=== PATIENT | female | born 1980 | race Caucasian/White ===

== ENCOUNTER 2023-10-31 10:57 | Outpatient (AMB) | payer OTHER, SELFPAY ==
--- NOTE | 2023-10-31 11:00 | A.OFFVIS_ITS ---
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 She reports this started intermittently 7 months a go. Arms are worse than feet. [employer] Required: No Allergies No Known Allergies Allergy (Verified 10/31/23 11:01) Medication List - Last Reconciled 10/31/23 by Ila Villa MD cholecalciferol (vitamin D3) 25 mcg PO DAILY duloxetine 20 mg PO BID HPI Comments Details: 43y/o female comes for evaluation of tingling , numbness in bilateral hands and feet. It started about 6 mths ago and has worsened in her hands since then she wakes up with tingling tightness in her hands and resolves in 5-10 minutes. Sometimes she wakes up at night with numbness tingling.she has mild weakness in her hands. No neck pain she also has some tingling numbness in her toes while working out at the gym.s he usually takes her shoes off and stretches which helps.she also has tingling cramps of her legs night that wake her up. No back pain or weakness. 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 [facility] Medical History (Updated 10/31/23 @ 11:32 by Ila Villa MD) Numbness and tingling in both hands Bilateral leg paresthesia Anxiety Bradycardia Arthritis of knee Surgical History H/O: hysterectomy Family History Mother Hypertension Hyperlipidemia Heart disease Father Hypertension Muscular dystrophy Sister Hypertension Hyperlipidemia Breast cancer Brother Hypertension Hyperlipidemia Maternal Grandmother Lung cancer Maternal Grandfather Diabetes Social History Alcohol intake: current Patient Tobacco Use Status: Never used Tobacco Physical Exam Vital Signs: Last Vital Signs Pulse 76 10/31/23 11:01 Resp 16 10/31/23 11:01 BP 116/70 10/31/23 11:01 BMI result Body Mass Index 32.4 Const General: cooperative, healthy appearing and comfortable Nutritional Appearance: overweight Orientation/consciousness: patient oriented x3 Eyes Pupils: Equal, round and reactive pupils present Neuro General: patient oriented x3, gait normal, tone normal, moves all extremities and no focal motor deficits Cranial nerves: Yes Facial sensation intact/muscles of mastication intact, Yes Equal, round and reactive pupils present, Yes Bilaterally intact EOM present, Yes Nystagmus not present, Yes Normal facial strength present, Yes Midline tongue present, Yes Symmetric palate elevation present and Yes Ability to bilaterally elevate shoulders present Cognition (Neuro): normal cognition Gait exam (Neuro): Normal gait present Motor exam (neuro): 5/5 motor strength present throughout, no tremor noted and Normal motor muscle tone present throughout Deep tendon reflexes (DTR's): Right triceps reflex intensity grade: 2+, Left triceps reflex intensity grade: 2+, Rt Biceps (C5, C6): 2+, Left biceps reflex intensity grade: 2+, Right brachioradialis reflex intensity grade: 2+, Left brachioradialis reflex intensity grade: 2+, Right patellar reflex intensity grade: 2+ and Left patellar reflex intensity grade: 2+ Coordination: [id number] test normal Assessment & Plan Assessment & Plan (1) Numbness and tingling in both hands: Comment: carpal tunnel Code(s): R20.0 - Anesthesia of skin; R20.2 - Paresthesia of skin Category: Medical (2) Bilateral leg paresthesia: Comment: nocturnal cramps , ? restless legs Code(s): R20.2 - Paresthesia of skin Category: Medical Plan Suggested to wear wrist splints at night. EMG NCS UE to evaluate for carpal tunnel Will consider sleep study Magnesium for nocturnal cramps I will check her Vit b 12 Vit D ferritin levels to r/o reversible causes and will consider dopamine agonists for leg cramps Orders: Orders Ferritin Today R20.2 - Paresthesia of skin Vitamin B12 and Folate Today R20.2 - Paresthesia of skin Vitamin D 25-OH (D2 and D3) Today R20.2 - Paresthesia of skin NE electromyogram (EMG) Today R20.0 - Anesthesia of skin, R20.2 - Paresthesia of skin NE nerve conduction velocity Today R20.0 - Anesthesia of skin, R20.2 - Paresthesia of skin Medications: New magnesium oxide 400 mg PO .qhs 30 tabs 6RF [wrist splints] As directed 1 ea 0RF carpal tunnel R20.0 - Anesthesia of skin, R20.2 - Paresthesia of skin Coding Level of Care Code New Pt Level 4 (20328) Diagnoses Numbness and tingling in both hands R20.0; R20.2 Bilateral leg paresthesia R20.2
[2023-10-31 11:01] VITALS: BP 116/70; PULSE 76; RESP 16; BMI 32.4
== END 2023-10-31 11:44 | disposition home or self-care (01) ==
PROVIDERS: PCP Internal Medicine; Visit Provider Psychiatry & Neurology Neurology
DX: R20.0 Anesthesia of skin (principal); R20.2 Paresthesia of skin
CPT/HCPCS: 99204

== ENCOUNTER → 2023-10-31 10:57 | Outpatient (BNVA) | payer OTHER, SELFPAY | PROVIDERS: PCP Internal Medicine; Visit Provider Psychiatry & Neurology Neurology | DX: R20.0 Anesthesia of skin (principal); R20.2 Paresthesia of skin | CPT/HCPCS: 99202 ==

== ENCOUNTER 2023-10-31 11:42 | Outpatient (REF) | payer OTHER, SELFPAY ==
[2023-10-31 19:01] LABS: Ferritin 154 ng/mL (10-250)
[2023-10-31 19:16] LABS: Folate 7.6 ng/mL (> or = 4.0); Vitamin B12 527 pg/mL (200-900)
[2023-11-04 16:33] LABS: Vitamin D 25-OH, D2 <4 ng/mL; Vitamin D 25-OH, D3 36 ng/mL; Vitamin D 25-OH, Total 36 ng/mL (30-100)
== END 2023-10-31 11:43 | disposition home or self-care (01) ==
LOC: HO.HKASLDS 11:42
PROVIDERS: Visit Provider Psychiatry & Neurology Neurology
DX: R20.2 Paresthesia of skin (principal)
CPT/HCPCS: 36415; 82306; 82607; 82728; 82746